=== PATIENT | female | born 1935 | race Caucasian/White ===

== ENCOUNTER 2016-10-23 22:36 | Observation (INO) | payer OTHER, MEDICARE ==
[~2016-10-23] VITALS: Ht 152.4 cm; Wt 52.4 kg
[~2016-10-23 22:36] MED LIST: ASPIR 8181 M1 PO; CALCIUM 600 +1 EAC3 PO; COUMADIN1 MG PO; COUMADIN2 MG PO; CYANOCOBAL1000 MCG/2 IM; DYAZIDE, MA1 CAPSULE PO; Dyazide, Maxzide 37. PO; FISH OIL 1,2001 EAC5 PO; FISH OIL CONC1 EACH PO; FOLIC ACID0.4 MG PO; KEFLEX500 MG PO; LOPRESSOR50 MG PO; Lopressor PO; METOPROLOL TART50 MG PO; PANTOPRAZOLE SO40 MG PO; PERCOCET 5/31 TABLET PO; PRESERVISION S1 EACH PO; SIMVASTATIN; SIMVASTATIN10 MG PO; TAMBOCOR100 MG PO; TAMBOCOR150 MG PO; TOPROL; TRAMADOL HCL50 MG PO; TRIAMTERENE-HC1 EACH PO; TRICOR145 MG PO; Tambocor PO; Tricor PO; VITAMIN B-12250 MCG PO; WARFARIN
[2016-10-23 23:20] LABS: EOSINOPHIL (%) 0.7 % (0-5); EOSINOPHIL COUNT 0.1 K/uL (0-0.3); HEMATOCRIT 37.3 % (36.0-46.0); IMMATURE GRANULOCYTE (%) 0.6 % (0.0-0.7); IMMATURE GRANULOCYTE COUNT 0.1 K/uL; LYMPHOCYTE COUNT 2.2 K/uL (1.0-2.8); MCH 29.3 PG (29.0-34.0); MCHC 33.2 G/DL (30.0-36.0); MCV 88.2 FL (83-99); MEAN PLAT.VOLUME 11.4 uM^3 (9.5-12.4); NEUTROPHIL (%) 67.6 % (45-76); PLATELET COUNT 228 K/uL (156-360); RBC DIS.WIDTH-CV 14.1 % (11.8-14.6); RBC DIS.WIDTH-SD 45.1 % (39-53); RED BLOOD COUNT 4.23 M/uL (3.80-5.20); WHITE BLOOD COUNT 10.3 K/uL (4.1-10.2)
[2016-10-23 23:33] LABS: CHLORIDE 111 mEq/L (99-109); POTASSIUM 3.8 mEq/L (3.7-5.4); SODIUM 143 mEq/L (136-147)
[2016-10-23 23:35] LABS: GLUCOSE 101 mg/dL (70-99)
[2016-10-23 23:36] LABS: ANION GAP 12 MEQ/L (2-14)
[2016-10-23 23:37] LABS: INTER. NORMALIZED RATIO 1.1; PROTHROMBIN TIME 11.7 (9.2-11.2); PTT 25.2 (25-32)
[2016-10-23 23:39] LABS: GFR ESTIMATE (CALCULATED) > 59 mL/min/
[2016-10-23 23:40] LABS: TROP-I INTERPRETATION NEGATIVE; TROPONIN-I < 0.01 ng/mL (0.0-0.30); UREA NITROGEN (BUN) 20 mg/dL (9-23)
[2016-10-24 01:13] LABS: TRIGLYCERIDES 179 MG/DL (Normal: <150)
[2016-10-24 01:14] LABS: HDL CHOLESTEROL 55 MG/DL (Desirable>=50); LDL CHOLESTEROL 49 mg/dL (Desirable<100); NON-HDL CHOLESTEROL 85 mg/dL (Desirable<160); TOTAL CHOLESTEROL 140 mg/dL (Desirable<200)
[2016-10-24] MEDS ORDERED: ELIQUIS2.5 MG PO (01:14)
[2016-10-24] MEDS ORDERED: AMIODARONE HCL200 MG PO (01:15)
[2016-10-24 04:21] VITALS: BP 170/79
[2016-10-24 06:55] LABS: TROP-I INTERPRETATION NEGATIVE; TROPONIN-I 0.02 ng/mL (0.0-0.30)
[2016-10-24 08:15] VITALS: BP 178/73
[2016-10-24 11:03] LABS: Estimated Average Glucose 91 mg/dL (70-123); HEMOGLOBIN A1c (GLYCOHEMOGLOB) 4.8 % HGB (Below 5.7)
[2016-10-24 12:35] VITALS: BP 183/77
[2016-10-24] MEDS ORDERED: METOPROLOL TART50 MG PO (13:02)
[2016-10-24] MEDS ORDERED: VITAMIN D31000 UNI2 PO (13:03)
== END 2016-10-24 14:45 | disposition home or self-care (01) ==
LOC: EME 22:36 → EDOF 10-24 03:07 → 5WEST 10-24 04:05
PROVIDERS: Emergency Medicine; Hospitalist
DX: G45.9 Transient cerebral ischemic attack, unspecified (principal); I48.0 Paroxysmal atrial fibrillation; N39.0 Urinary tract infection, site not specified; I67.1 Cerebral aneurysm, nonruptured; I10 Essential (primary) hypertension; E78.5 Hyperlipidemia, unspecified
CPT/HCPCS: 70450; 70496; 70498; 80048; 80061; 82607; 82746; 83036; 84443; 84484; 85025; 85610; 85730; 93005; 93306; 99281; 99285; G0378; J7030

== ENCOUNTER 2017-11-05 08:41 | Emergency (ER) | payer OTHER, MEDICARE ==
[~2017-11-05] VITALS: Ht 149.9 cm; Wt 49.1 kg
[~2017-11-05 08:41] MED LIST changes: +AMIODARONE HCL200 MG PO; +ELIQUIS2.5 MG PO; +VITAMIN D31000 UNI2 PO
[2017-11-05 09:09] LABS: BASOPHIL (%) 0.2 % (0-1); EOSINOPHIL (%) 0.1 % (0-5); HEMATOCRIT 38.2 % (36.0-46.0); IMMATURE GRANULOCYTE (%) 0.5 % (0.0-0.7); LYMPHOCYTE (%) 7.3 % (15-42); LYMPHOCYTE COUNT 1.1 K/uL (1.0-2.8); MCH 29.2 PG (29.0-34.0); MCV 85.8 FL (83-99); MONOCYTE (%) 8.1 % (3-12); MONOCYTE COUNT 1.2 K/uL (0-0.8); NEUTROPHIL (%) 83.8 % (45-76); NEUTROPHIL COUNT 12.3 K/uL (1.8-6.4); PLATELET COUNT 172 K/uL (156-360); RBC DIS.WIDTH-CV 14.1 % (11.8-14.6); RBC DIS.WIDTH-SD 44.5 % (39-53); RED BLOOD COUNT 4.45 M/uL (3.80-5.20); WHITE BLOOD COUNT 14.6 K/uL (4.1-10.2)
[2017-11-05 09:37] LABS: ALBUMIN 3.9 G/DL (3.2-4.8); ALKALINE PHOSPHATASE 111 IU/L (3-129); ALT (GPT) 38 IU/L (3-49); AST (GOT) 22 IU/L (2-34); CHLORIDE 103 MEQ/L (99-109); GFR ESTIMATE (CALCULATED) 56 mL/min/; GLUCOSE 252 mg/dL (70-99); MAGNESIUM 1.1 mg/dl (1.3-2.7); POTASSIUM 3.8 MEQ/L (3.7-5.4); SODIUM 133 MEQ/L (136-147); TOTAL PROTEIN 6.2 G/DL (6.4-8.3); UREA NITROGEN (BUN) 21 mg/dL (9-23)
[2017-11-05 09:38] LABS: TROP-I INTERPRETATION NEGATIVE; TROPONIN-I 0.01 ng/mL (0.0-0.30)
[2017-11-05 12:34] LABS: TROP-I INTERPRETATION NEGATIVE; TROPONIN-I < 0.01 ng/mL (0.0-0.30)
[2017-11-05 12:46] VITALS: BP 119/67
== END 2017-11-05 12:46 | disposition home or self-care (01) ==
LOC: EME 08:41
PROVIDERS: Emergency Medicine
DX: R07.9 Chest pain, unspecified (principal); I10 Essential (primary) hypertension; E78.5 Hyperlipidemia, unspecified; I48.91 Unspecified atrial fibrillation; Z87.891 Personal history of nicotine dependence
CPT/HCPCS: 71045; 71275; 80053; 83735; 83880; 84484; 85025; 93005; 99281; 99285